=== PATIENT | female | born 1960 | race Caucasian/White ===

== ENCOUNTER 2016-08-03 02:25 | Emergency (ER) | payer OTHER ==
[~2016-08-03] VITALS: Ht 160 cm; Wt 103.4 kg
--- NOTE | ~2016-08-03 | EKG ---
[address] [address] ELECTROCARDIOGRAM REPORT Name: JEFFERSON SAENZ Room #: [place]#: [id number] Admission: 08/03/16 Attend Phys: Discharge: 08/03/16 Date of : 56 Report #: [id number] THIS REPORT FOR: //name// [facility] ED Test Date: 2016-08-03 Test Time: 02:35:00 Pat Name: JEFFERSON SAENZ Department: Room: Gender: F [employer]: [id number] : [id number] Requested By: Adrien Hdez Order Number: [id number] MD: Cruz Tucker Measurements Intervals [place] Rate: 64 P: -41 TX: 153 QRS: -11 QRSD: 107 T: 4 QT: 443 QTc: 457 Interpretive Statements Sinus rhythm Abnormal R-wave progression, early transition Nonspecific ST segment abnormality No previous ECG available for comparison Electronically Signed On 08-03-2016 8:38:07 CDT by Cruz Tucker [email or web address] <ELECTRONICALLY SIGNED> By: Cruz Tucker MD, [facility] 08/03/16 0838 D: [id number] Cruz Tucker MD, FACC /EPI
[~2016-08-03 02:25] MED LIST: BENAZEPRIL HCL20 MG; BRINTELLIX10 MG PO; COUMADIN7.5 MG PO; FISH OIL 1,001000 M2 PO; HYDROXYCHLOROQ200 M1 PO; LIPITOR 20 MG T20 M1 PO; LYRICA100 MG PO; NORCO 5-325 TA1 EACH PO; NOVOLOG100 UNIT/M SUBQ; PRILOSEC 20 MG20 MG PO; TIZANIDINE HCL4 M1 PO; VENTOLIN HFA 1818 GM; VITAMIN D1000 UNI1 PO; ZOFRAN ODT4 MG PO
[2016-08-03] MEDS ORDERED: PRAVACHOL40 MG PO (02:36)
[2016-08-03] MEDS ORDERED: VITAMIN D31000 UNI2 PO (02:37)
[2016-08-03] MEDS ORDERED: HUMALOG MI100 UNIT/6 SUBQ (02:40)
[2016-08-03] MEDS ORDERED: ARAVA20 MG (02:40)
[2016-08-03] MEDS ORDERED: PREDNISONE 5 MG5 M1 PO (02:41)
[2016-08-03] MEDS ORDERED: CARDIZEM CD120 MG PO (02:41)
[2016-08-03] MEDS ORDERED: ZANAFLEX4 M2 (02:41)
[2016-08-03] MEDS ORDERED: VICODIN ES 7.51 EACH PO (02:42)
[2016-08-03] MEDS ORDERED: CELEXA20 MG PO (02:42)
[2016-08-03 03:26] LABS: ABSOLUTE NEUTROPHILS 7.1 thou/uL (1.4-8.2); BASOPHILS 0.9 % (0.0-2.0); EOSINOPHILS 1.2 % (0.0-3.0); HEMATOCRIT 39.7 % (37.0-47.0); LYMPHOCYTES 21.1 % (24.0-44.0); MCH 25.7 pg (26.0-34.0); MCHC 32.6 g/dL (28.0-37.0); MCV 78.7 fL (80.0-100.0); MONOCYTES 6.6 % (1.0-8.0); POLYS 70.2 % (36.0-66.0); RBC 5.05 mil/uL (4.20-5.00); RDW 16.6 % (10.5-14.5); WBC 10.1 thou/uL (4.0-11.0)
[2016-08-03 03:37] LABS: URINE BILIRUBIN NEGATIVE (Negative); URINE BLOOD NEGATIVE (Negative); URINE COLOR YELLOW; URINE GLUCOSE-RANDOM* 3+ (Negative); URINE KETONES NEGATIVE (Negative); URINE NITRITE POSITIVE (Negative); URINE PROTEIN (DIPSTICK) NEGATIVE (Negative); URINE SPECIFIC GRAVITY 1.025 (1.003-1.035); URINE UROBILINOGEN 0.2 E.U./dl (0.2-1.0)
[2016-08-03 03:42] LABS: ANION GAP 7 mmol/L (7-16); BUN 13 mg/dL (7-18); CALCIUM 8.7 mg/dL (8.5-10.1); CHLORIDE 101 mmol/L (98-107); CO2 27 mmol/L (21-32); CREATININE 0.8 mg/dL (0.6-1.0); GLUCOSE 341 mg/dL (74-106); POTASSIUM 4.2 mmol/L (3.5-5.1); SODIUM 135 mmol/L (136-145); TROPONIN-I < 0.04 ng/mL (<0.04-0.07)
[2016-08-03 03:55] LABS: MANUAL DIFF NO
[2016-08-03 04:11] LABS: BACTERIA >30 Many /HPF (None Seen); CASTS None Seen /LPF (None Seen); CRYSTALS None Seen /LPF (None Seen); SQUAMOUS >10 Many /LPF (0-3); URINE RBC 0-2 Rare /HPF (0-2); URINE WBC 6-15 Few /HPF (0-5)
[2016-08-03] MEDS ORDERED: CEFDINIR300 MG PO (04:20)
[2016-08-03 04:59] LABS: LARGE PLATELETS OCCASIONAL; PLATELET COUNT 173 thou/uL (150-400)
[2016-08-03 05:25] VITALS: BP 107/65
== END 2016-08-03 05:37 | disposition home or self-care (01) ==
LOC: ER 02:25
PROVIDERS: Emergency Medicine
DX: N39.0 Urinary tract infection, site not specified (principal); I10 Essential (primary) hypertension; E11.9 Type 2 diabetes mellitus without complications; E78.00 Pure hypercholesterolemia, unspecified; F32.9 Major depressive disorder, single episode, unspecified; F12.10 Cannabis abuse, uncomplicated; Z88.5 Allergy status to narcotic agent; Z88.1 Allergy status to other antibiotic agents; Z88.8 Allergy status to other drugs, medicaments and biological substances; Z79.4 Long term (current) use of insulin